=== PATIENT | female | born 1990 | race Caucasian/White ===

== ENCOUNTER 2020-08-26 12:35 | Emergency (ER) | payer OTHER, SELFPAY ==
[~2020-08-26] VITALS: Ht 157.5 cm; Wt 97.1 kg
[2020-08-26 12:37] VITALS: Ht 157.5 cm; Wt 97.1 kg
[2020-08-26 14:57] VITALS: BP 125/91
== END 2020-08-26 14:57 | disposition home or self-care (01) ==
LOC: ED 12:35
DX: U07.1 COVID-19 (principal); J45.901 Unspecified asthma with (acute) exacerbation
CPT/HCPCS: 87804; U0003